=== PATIENT | female | born 1980 | race Caucasian/White ===

== ENCOUNTER → 2016-03-19 | Outpatient (CLI) | payer BC ==
--- NOTE | 2016-03-19 21:14 | DI ---
XR SHOULDER MIN 2VW,03/19/2016 2:16 PM: Clinical History: Shoulder pain. Previous Exam: Contralateral shoulder performed January 12, 2014 Findings: 3 views of the left shoulder are obtained, and demonstrate anatomic alignment without fractures. The surrounding soft tissues are unremarkable. Impression: Normal left shoulder.
--- NOTE | 2016-03-19 21:25 | DI ---
MRI UP EXTREMITY JNT W/O CN,03/19/2016 3:22 PM: Clinical History: Left shoulder pain status post injury. Previous Exam: None at this facility. Findings: Multiplanar MR images are obtained of the left shoulder without contrast. Bony alignment is anatomic. No fractures are seen. Marrow signal is preserved. There is no degenerative change of the acromioclavicular joint. The acromion process is normal. Evaluation of the glenoid labrum is grossly normal. There is some very mild increased signal involving the distal supraspinatus tendon. The infraspinatus, subscapularis and teres minor tendons are intact. The long head of the biceps tendon is also intact. There is no axillary lymphadenopathy. The major vascular flow voids are unremarkable. Impression: Very mild tendinosis of the distal supraspinatus tendon otherwise unremarkable.
== END ==
LOC: ORTHO 14:52
PROVIDERS: ATTEND Physician Assistant
DX: S49.82XA Other specified injuries of left shoulder and upper arm, initial encounter (principal); M25.512 Pain in left shoulder; R22.32 Localized swelling, mass and lump, left upper limb; Y04.2XXA Assault by strike against or bumped into by another person, initial encounter
CPT/HCPCS: 73030; 73221